=== PATIENT | female | born 1985 | race Caucasian/White ===

== ENCOUNTER 2017-11-03 11:41 | Emergency (ER) | payer OTHER ==
[~2017-11-03] VITALS: Ht 167.6 cm; Wt 95.3 kg
[2017-11-03 11:46] VITALS: Ht 167.6 cm; Wt 95.3 kg
[2017-11-03 14:05] VITALS: BP 135/87
== END 2017-11-03 14:05 | disposition home or self-care (01) ==
LOC: ED 11:41
DX: O36.4XX0 Maternal care for intrauterine death, not applicable or unspecified (principal); Z3A.17 17 weeks gestation of pregnancy